=== PATIENT | male | born 1995 | race Caucasian/White ===

== ENCOUNTER 2019-03-25 08:07 | Emergency (ER) | payer OTHER ==
[~2019-03-25] VITALS: Ht 172.7 cm; Wt 72.6 kg
[2019-03-25 08:09] VITALS: Ht 172.7 cm; Wt 72.6 kg
[2019-03-25 09:45] VITALS: BP 130/72
== END 2019-03-25 09:45 | disposition other institution (70) ==
LOC: ED 08:07
DX: Z02.89 Encounter for other administrative examinations (principal)